=== PATIENT | female | born 1965 | race Caucasian/White ===

== ENCOUNTER 2020-07-15 18:30 | Emergency (ER) | payer MEDICAID ==
[~2020-07-15] VITALS: Ht 160 cm; Wt 97.5 kg
[2020-07-15] MEDS ORDERED: NORCO 10-325 T1 EACH PO (19:51)
[2020-07-15 20:26] VITALS: BP 140/67
== END 2020-07-15 20:26 | disposition home or self-care (01) ==
LOC: ER 18:30
DX: S52.502A Unspecified fracture of the lower end of left radius, initial encounter for closed fracture (principal); S52.122A Displaced fracture of head of left radius, initial encounter for closed fracture; S09.90XA Unspecified injury of head, initial encounter; M54.2 Cervicalgia; R42 Dizziness and giddiness; F31.9 Bipolar disorder, unspecified; Z85.3 Personal history of malignant neoplasm of breast; W18.09XA Striking against other object with subsequent fall, initial encounter; Y93.01 Activity, walking, marching and hiking; Y92.89 Other specified places as the place of occurrence of the external cause; Y99.8 Other external cause status